=== PATIENT | female | born 1965 | race Caucasian/White ===

== ENCOUNTER 2025-11-02 10:53 | Emergency (ER) | payer MEDICAID, OTHER ==
[~2025-11-02] VITALS: Ht 162.6 cm; Wt 68.2 kg
[2025-11-02] MEDS: PROPARACAINE HCL 0.5% 15 ML OPHTHALMIC SOLUTION OU ONE (12:25)
[2025-11-02] MEDS: FLUORESCEIN SODIUM 1 MG STRIP OU ONE (12:25)
[2025-11-02 14:31] VITALS: BP 116/65; PULSE 84; RESP 18; TEMP 98.3; O2SAT 99
== END 2025-11-02 15:03 | disposition home or self-care (01) ==
LOC: EMS 10:53
DX: H53.8 Other visual disturbances (principal); H57.11 Ocular pain, right eye; E11.9 Type 2 diabetes mellitus without complications; J45.909 Unspecified asthma, uncomplicated; F32.A Depression, unspecified; F41.9 Anxiety disorder, unspecified; Z87.891 Personal history of nicotine dependence
CPT/HCPCS: 82962; 99283